=== PATIENT | male | born 2000 | race American Indian/Alaskan Native ===

== ENCOUNTER 2021-03-12 08:26 | Emergency (ER) | payer OTHER ==
[2021-03-12 08:57] VITALS: BP 116/60
[2021-03-12] MEDS ORDERED: IBUPROFEN 600 MG TAB PO ONE (09:25)
[2021-03-12] MEDS ORDERED: dexAMETHasone 20 MG/5 ML VIAL IM ONE (09:25)
--- NOTE | 2021-03-12 09:25 | Emergency Department Report ---
- General Chief Complaint: Upper Respiratory Infection Stated Complaint: FEVER, CHILLS, COUGH Time Seen by Provider: 03/12/21 09:00 Source: patient Mode of arrival: Ambulatory Limitations: No Limitations - History of Present Illness Initial Comments: 21-year-old male who has no significant past medical history was brought to the ER today with mom with complaints of URI/flulike symptoms. Patient states that symptoms started yesterday. He complains of chills, he did have a temperature of 100.5 this morning for which he took nothing, as well as rhinorrhea, nasal congestion, productive cough and body aches. Mom states that she had similar symptoms last week but no fever. Patient does admit to recent travel from [place] a couple days ago, but no apparent ill contacts during his visit. He has not yet had a flu vaccine or a Covid vaccine. He does admit to marijuana use but denies tobacco use, or other illicit drug use. He states that he drinks occasionally. Mom states that overall patient is healthy with no significant chronic medical issues. MD Complaint: fever, cough, rhinorrhea, nasal congestion -: Gradual - Related Data Previous Rx's Medication Instructions Recorded Last Taken Type Fluticasone [Flonase] 2 spray NS QDAY #1 bottle 03/12/21 Unknown Rx Ketorolac [Toradol] 10 mg PO Q6H PRN #20 tablet 03/12/21 Unknown Rx Oseltamivir [Tamiflu] 75 mg PO BID #10 cap 03/12/21 Unknown Rx Pseudoephedrine ER [Sudafed 12 Hr] 120 mg PO BID #20 tablet.er 03/12/21 Unknown Rx Allergies Allergy/AdvReac Type Severity Reaction Status Date / Time No Known Allergies Allergy Unverified 03/12/21 08:56 ED Review of Systems ROS: Stated complaint: FEVER, CHILLS, COUGH Other details as noted in HPI Comment: All other systems reviewed and negative Constitutional: see HPI, fever ENT: congestion, other (rhinnorrhea ). denies: throat pain Respiratory: cough. denies: shortness of breath, SOB with exertion, SOB at rest, wheezing Cardiovascular: denies: chest pain, palpitations, dyspnea on exertion, edema, syncope, paroxysmal nocturnal dyspnea Gastrointestinal: denies: abdominal pain, nausea, diarrhea Genitourinary: denies: urgency, dysuria, frequency, hematuria, discharge, testicular pain, testicular mass Musculoskeletal: denies: back pain, joint swelling, arthralgia Skin: denies: rash, lesions, change in color, change in hair/nails, pruritus Neurological: denies: headache, weakness, numbness, paresthesias, confusion, abnormal gait, vertigo Psychiatric: denies: anxiety, depression, auditory hallucinations, visual hallucinations, homicidal thoughts, suicidal thoughts Hematological/Lymphatic: denies: easy bleeding, easy bruising, swollen glands ED Past Medical Hx - Medications Home Medications: Home Medications Medication Instructions Recorded Confirmed Last Taken Type Fluticasone [Flonase] 2 spray NS QDAY #1 bottle 03/12/21 Unknown Rx Ketorolac [Toradol] 10 mg PO Q6H PRN #20 tablet 03/12/21 Unknown Rx Oseltamivir [Tamiflu] 75 mg PO BID #10 cap 03/12/21 Unknown Rx Pseudoephedrine ER [Sudafed 12 Hr] 120 mg PO BID #20 tablet.er 03/12/21 Unknown Rx ED Physical Exam - General Limitations: No Limitations General appearance: alert, in no apparent distress - Head Head exam: Present: atraumatic, normocephalic, normal inspection - Eye Eye exam: Present: normal appearance, PERRL, EOMI Pupils: Present: normal accommodation - ENT ENT exam: Present: other (+nasal congestion ) - Expanded ENT Exam Expanded TM/Canal exam: Effusion: Right TM, Left TM Mouth exam: Present: normal external inspection Teeth exam: Present: normal inspection Throat exam: Positive: tonsillar erythema. Negative: tonsillomegaly, tonsillar exudate, R peritonsillar mass, L peritonsillar mass - Neck Neck exam: Present: normal inspection, full ROM, lymphadenopathy (mild anterior cervical ). Absent: meningismus - Respiratory Respiratory exam: Present: normal lung sounds bilaterally. Absent: respiratory distress, wheezes, rales, rhonchi - Cardiovascular Cardiovascular Exam: Present: regular rate, normal rhythm, normal heart sounds - GI/Abdominal GI/Abdominal exam: Present: soft. Absent: distended, tenderness, guarding, rebound - Neurological Exam Neurological exam: Present: alert, oriented X3, CN II-XII intact, normal gait - Psychiatric Psychiatric exam: Present: normal affect, normal mood ED Course Vital Signs 03/12/21 03/12/21 08:54 08:57 Temperature 99.1 F Pulse Rate 109 H Respiratory 18 Rate Blood Pressure 116/60 O2 Sat by Pulse 99 Oximetry ED Medical Decision Making - Radiology Data Radiology results: report reviewed Patient: STEPHANIE HUBBARD MR#: [id number] : 2000 Acct:[id number] Age/Sex: 20 / M ADM Date: 03/12/21 Loc: ED Attending Dr: Ordering Physician: APRIL POZO Date of Service: 03/12/21 Procedure(s): XR chest routine 2V Accession Number(s): [id number] cc: APRIL POZO Fluoro Time In Minutes: CHEST 2 VIEWS INDICATION / CLINICAL INFORMATION: Cough/fever. COMPARISON: None available. FINDINGS: SUPPORT DEVICES: None. HEART / MEDIASTINUM: No significant abnormality. LUNGS / PLEURA: No significant pulmonary or pleural abnormality. No pneumothorax. ADDITIONAL FINDINGS: No significant additional findings. IMPRESSION: 1. No acute findings. Signer Name: Cornell Dover MD Signed: 03/12/2021 9:54 AM Workstation Name: [email or web address] Transcribed By: DB Dictated By: CORNELL DOVER MD Electronically Authenticated By: CORNELL DOVER MD Signed Date/Time: 03/12/21953 DD/ 2 TD/TT: - Medical Decision Making Rapid flu is positive for influenza A. Chest x-ray is negative for anything acute. Overall patient is not toxic, he is not significantly ill-appearing, he appears hydrated. He denies any significant pain or respiratory distress. He is neurologically intact with a normal gait. No meningeal signs on exam. He does not appear septic. Discussed lab results with patient. He will be started on Tamiflu, but I did inform him that Tamiflu is not a cure, only that it may decreased his length of sickness by couple days but mostly he needs to stay hydrated by drinking lots of fluids, he can take the Tylenol and alternate with the Toradol for any pain or fever, and take the Flonase and Sudafed as prescribed for his nasal congestion. Recommend close follow-up with his primary care doctor but he understand that if any point symptoms worsens he needs to return to the ER immediately. Critical care attestation.: If time is entered above; I have spent that time in minutes in the direct care of this critically ill patient, excluding procedure time. ED Disposition Clinical Impression: Influenza A Disposition: 01 HOME / SELF CARE / HOMELESS Is pt being admited?: No Does the pt Need Aspirin: No Condition: Stable Instructions: Influenza, Adult, [id number] Additional Instructions: I recommend that you take Sudafed, and use the Flonase as prescribed. Take the Tamiflu as prescribed. You can also do regular Mucinex or Robitussin from [id number] to help with the cough. I recommend Tylenol and/or the toradol for any body aches, and fever. Most importantly drink lots of fluids, rest, and continue taking a multivitamin. Recommend close follow-up with your primary care doctor, if you do not have 1 will be provided for you on your discharge instructions. Return to the ER if at any point your symptoms changes or worsens in any way. Prescriptions: Fluticasone [Flonase] 2 spray NS QDAY #1 bottle Pseudoephedrine ER [Sudafed 12 Hr] 120 mg PO BID #20 tablet.er Oseltamivir [Tamiflu] 75 mg PO BID #10 cap Ketorolac [Toradol] 10 mg PO Q6H PRN #20 tablet PRN Reason: Pain Referrals: [facility] [Provider Group] - 3-5 Days MADDY LYN MD [Staff Physician] - 3-5 Days Forms: Work/School Release Form(ED) Time of Disposition: 10:14
--- NOTE | 2021-03-12 09:58 | XRay Report ---
CHEST 2 VIEWS INDICATION / CLINICAL INFORMATION: Cough/fever. COMPARISON: None available. FINDINGS: SUPPORT DEVICES: None. HEART / MEDIASTINUM: No significant abnormality. LUNGS / PLEURA: No significant pulmonary or pleural abnormality. No pneumothorax. ADDITIONAL FINDINGS: No significant additional findings. IMPRESSION: 1. No acute findings. Signer Name: Cornell Dover MD Signed: 03/12/2021 9:54 AM Workstation Name: [email or web address]
== END 2021-03-12 10:36 | disposition home or self-care (01) ==
LOC: ED 08:26
DX: J10.1 Influenza due to other identified influenza virus with other respiratory manifestations (principal)
CPT/HCPCS: 71046; 87400; 96372; 99283; J1100